=== PATIENT | female | born 1990 | race Caucasian/White ===

== ENCOUNTER 2020-09-17 10:08 | Outpatient (RCR) | payer OTHER, SELFPAY ==
--- NOTE | ~2020-09-17 | US_ITS ---
EXAMINATION: US OB follow up w [facility] DATE: 09/17/2020 11:44 INDICATION: Third trimester, post dates, estimated weight, biophysical profile, and amniotic fl uid index assessment. TECHNIQUE: Real-time pelvic ultrasound was performed. The interpreting radiologist was not present fo r the study. COMPARISON: None. FINDINGS: There is a single living fetus in vertex presentation. The placenta is located to the left. hea rt rate is 157 beats per minute (bpm). The amniotic fluid index is 12.3 cm which is normal. Biophysical profile performed by the technologist: breathing (30 sec sustained breathing in 30 minutes): 2 out of 2 movement (3 gross body movements in 30 minutes): 2 out of 2 tone (one episode of cwphblh-uudqwnlbo-msjqgdx limb movement): 2 out of 2 Amniotic fluid pocket (2 cm): 2 out of 2 Total score: 8 out of 8 The following biometric data were obtained: Biparietal diameter (BPD): 10.1 cm; head circumference (HC): 35.6 cm; abdominal circumference (AC): 3 8.0 cm; femur length (FL): 7.0 cm. Estimated weight is 4245 g +/- 636 g, which correlates with the 89th percentile when 09/15/2020 is used as estimated date of delivery. As single measurements, these parameters are each equal to the following estimated gestational ages w ith ranges of +/- 2 standard deviations: BPD: Out of range. HC: 41 weeks 5 days +/- out of range. AC: Out of range. FL: 36 weeks 1 days +/- out of range. estimated gestational age based solely on measurements from this exam is 39 weeks 0 days +/- 2 weeks 5 days. IMPRESSION: 1. Single living fetus in vertex presentation. 2. Biophysical profile 8 out of 8. 3. Estimated weight is 4245 g +/- 636 g, which correlates with the 89th percentile when 09/16/19 21 is used as estimated date of delivery. 4. Normal amniotic fluid index. Reviewed, dictated and finalized at location A. IMPRESSION: 1. Single living fetus in vertex presentation. 2. Biophysical profile 8 out of 8. 3. Estimated weight is 4245 g +/- 636 g, which correlates with the 89th p ercentile when 09/15/2020 is used as estimated date of delivery. 4. Normal amniotic fluid index.
--- NOTE | 2020-09-17 12:15 | PC.NURSE ---
Reported results of ultrasound and tracing to Dr. Brown, Pt may be discharged home. Keep appt for monday.
[2020-09-17 12:57] VITALS: BP 142/82; PULSE 92
== END 2020-09-21 09:33 | disposition home or self-care (01) ==
LOC: ANHOBOP 10:08
PROVIDERS: Visit Provider Obstetrics & Gynecology
DX: O48.0 Post-term pregnancy (principal); Z3A.40 40 weeks gestation of pregnancy
CPT/HCPCS: 59025; 76816; 76819

== ENCOUNTER 2020-09-17 22:02 | Inpatient (IN) | payer OTHER, SELFPAY ==
[2020-09-17 22:30] VITALS: BP 135/86; PULSE 92
[2020-09-17 22:45] VITALS: BP 143/78; PULSE 91
[2020-09-17 22:51] VITALS: BMI 38.5
--- NOTE | 2020-09-17 22:54 | LDADM ---
This patient, Deborah Maurice, was admitted to Labor/Delivery/Recovery 105 on 09/17/20 at 22:02. Plans for labor, pain management and were discussed with patient. Patient/family oriented to hospital policies and general routines including ID bracelet, bed and alarms, visiting hours, pain management, procedures, bathroom and other care routines, personal items, smoking policy, room service/diet and guest tray routines, infant security routines, and visiting hours. Patient/Family are encouraged to report perceived risks to care and to ask questions if they do not understand what they are told or what they should do. See OBIX for further documentation.
[2020-09-17 23:01] VITALS: BP 140/78; PULSE 91
[2020-09-17 23:08] LABS: Basophils Percent Auto 0.2 % (0.2-1.2); Eosinophils Absolute Auto 0.2 K/mm3 (0-0.3); Eosinophils Percent Auto 2.1 % (0-4.4); Hematocrit 39.3 % (37.0-47.0); Hemoglobin 13.4 g/dL (12.0-15.0); Immature Granulocyte Absolute 0.09 K/mm3 (0.00-0.031); Immature Granulocyte Percent A 0.9 % (0-0.5); Lymphocytes Absolute Auto 2.66 K/mm3 (0.9-3.2); Lymphocytes Percent Auto 25.3 % (18.3-44.2); Mean Corpuscular HGB Conc 34.1 g/dl (32-36); Mean Corpuscular Hemoglobin 30.1 pg (26-34); Mean Corpuscular Volume 88.3 fl (80-100); Mean Platelet Volume 10.8 fl (7.4-10.4); Monocytes Absolute Auto 0.6 K/mm3 (0.1-0.6); Monocytes Percent Auto 5.5 % (2.6-8.5); Platelet Count Result 213 k/mm3 (150-375); Red Blood Count 4.45 M/mm3 (4.2-5.4); Red Cell Distribution Width 14.6 % (11.5-14.5); White Blood Count 10.5 K/mm3 (4.5-10.0)
[2020-09-17 23:12] VITALS: RESP 18; TEMP 36.9
[2020-09-17 23:16] VITALS: BP 143/69; PULSE 94
[2020-09-17 23:43] VITALS: RESP 18; TEMP 36.6
[2020-09-18] VITALS (164 sets, daily range): BP systolic 106–166; BP diastolic 45–100; PULSE 77–126; RESP 16–20; TEMP 36.1–36.9; O2SAT 94–100
--- NOTE | 2020-09-18 08:50 | PM.IMHP ---
H&P: HPI History of Present Illness Date/Time: 09/18/20 0850 30 y/o G1 at 40 3/7 weeks here with a gush of clear fluid at 2044 last night. Has had minimal contractions overnight. Has declined oxytocin, preferring instead to wait for natural contractions. GBS neg. EFW 4200 g yesterday on ultrasound, vertex. Chief Complaint: Water broke Review of Systems Review of Systems: All systems reviewed & are unremarkable except as noted in HPI and below PMFSH Family History Family History Grandparent Family history of malignant neoplasm of breast Cerebrovascular accident Parkinson disease Father Hypertension Mother Liver failure Social History Social History Smoking status: Never smoker Second hand tobacco smoke exposure: No Alcohol intake: never Substance use: never Spiritual care concerns: No Meds Home Medications and Allergies Home Medications Medication Instructions Recorded Confirmed Type prenat.vits,heladio,ovh-dlvc-nrhyt 1 tablet PO HS 08/15/20 09/17/20 History [ #2] Allergies Allergy/AdvReac Type Severity Reaction Status Date / Time No Known Allergies Allergy Verified 08/15/20 13:37 Vital Signs Vital Signs - 24 hr 09/17/20 22:30 09/17/20 22:45 09/17/20 23:01 Temperature Pulse Rate 92 91 91 Respiratory Rate Blood Pressure 135/86 143/78 H 140/78 Pulse Oximetry 09/17/20 23:12 09/17/20 23:16 09/17/20 23:43 Temperature 36.9 C 36.6 C Pulse Rate 94 Respiratory Rate 18 18 Blood Pressure 143/69 H Pulse Oximetry 09/18/20 01:19 09/18/20 02:37 09/18/20 02:39 Temperature 36.1 C L 36.5 C Pulse Rate 84 Respiratory Rate 16 18 Blood Pressure 124/62 Pulse Oximetry 09/18/20 04:16 09/18/20 05:13 09/18/20 09:30 Temperature 36.4 C L 36.3 C L 36.7 C Pulse Rate 90 Respiratory Rate 20 18 Blood Pressure 135/76 Pulse Oximetry 09/18/20 11:01 09/18/20 11:30 06/25/21 12:00 Temperature 36.6 C Pulse Rate 90 93 Respiratory Rate Blood Pressure 133/76 137/77 Pulse Oximetry 09/18/20 12:30 09/18/20 13:00 09/18/20 13:07 Temperature Pulse Rate 90 88 Respiratory Rate Blood Pressure 138/81 145/77 H Pulse Oximetry 100 Exam Const: Orientation/consciousness: patient oriented x3 Other: Well-developed, well-nourished female in no acute distress. Neck: Thyroid: thyroid normal Lymphatic: no lymphadenopathy noted (in neck, axilla or inguinal nodes) Resp: Effort & Inspection: normal respiratory effort Auscultation: clear to auscultation bilaterally Cardio: Rate: regular rate Rhythm: regular rhythm Heart sounds: S1 normal heart sound present and S2 normal heart sound present GI: Other: ABD: Soft, nontender, nondistended, gravid, vertex. No guarding or rebound tenderness. No hepatosplenomegaly. NST reactive TOCO: rare contractions : General: Yes no CVA tenderness Other: Gross ROM. Cervix 1/80/-2 Back/Spine/Pelvis: Back: no CVA tenderness Skin: General skin exam: normal color and no rashes or lesions noted Neuro: General: patient oriented x3 Extrem: Other: Extremities: nontender with no edema Psych: Mental Status: mental status grossly normal Affect: normal affect H&P: Results Labs Labs: Short CBC 09/17/20 Range/Units 22:40 WBC 10.5 H (4.5-10.0) K/mm3 Hgb 13.4 (12.0-15.0) g/dL Hct 39.3 (37.0-47.0) % Plt Count 213 (150-375) k/mm3 Assessment and Plan Assessment and plan (1) SROM (spontaneous rupture of membranes): Status: Acute Assessment and Plan: A: IUP at 40 3/7 weeks with SROM. Now with SROM for approximately 12 hours. P: Offered augmentation of labor with oxytocin. We reviewed risks, benefits and alternatives in detail. She agrees to labor augmentation. Also will plan antibiotics if ROM > 18 hours. Finally, we reviewed the ultrasound
[2020-09-18 09:27] LABS: Rapid Plasma Reagin Non-Reactive (NonReactive)
[2020-09-18] MEDS: LACTATED RINGERS 1,000 ML 125 ML IV CONT ×2 (09:27→20:21)
[2020-09-18] MEDS: OXYTOCIN 30 UNITS/NS 500 ML 30 UNITS/500 ML BAG 6 UNITS IV CONT (09:28)
--- NOTE | 2020-09-18 13:20 | PM.OBPNLAB ---
Pain Control Date/time seen: 09/18/20 13:20 Comments: Feeling more contractions. Pelvic Exam Dilation (cm): 1 Effacement (%): 90 station: -2 Comments: AROM forebag with clear fluid. IUPC placed. Status status: Category l Assessment and Plan Comments: A: IUP at term with SROM. 4200 g efw. P: Augmenting labor with oxytocin. IUPC placed. Plan antibiotics at 18 h after SROM.
[2020-09-18] MEDS: AMPICILLIN 2 GM/NS 100 ML 2 GM/100 ML BAG IVPB (14:34)
--- NOTE | 2020-09-18 18:22 | PM.OBPNVD ---
OB - PN: Subj Subjective Date/time seen: 09/18/20 18:22 cx 3 by rn exam fhts ok/mec present abx going explained need to expedite delivery OB - PN: Obj Data Labs CBC & Chem 7: 09/17/20 22:40 Labs: Laboratory Results - last 24 hr 09/17/20 09/17/20 09/17/20 22:40 22:40 22:40 WBC 10.5 H RBC 4.45 Hgb 13.4 Hct 39.3 MCV 88.3 MCH 30.1 MCHC 34.1 RDW 14.6 H Plt Count 213 MPV 10.8 H Immature Gran % (Auto) 0.9 H Neut % (Auto) 66.0 Lymph % (Auto) 25.3 [place] % (Auto) 5.5 Eos % (Auto) 2.1 Baso % (Auto) 0.2 Lymph # (Auto) 2.66 [place] # (Auto) 0.6 Eos # (Auto) 0.2 Baso # (Auto) 0.0 Abs Immat Gran (auto) 0.09 H Absolute Neuts (auto) 7.0 H Absolute Nucleated RBC 0.0 Nucleated RBC % 0.0 RPR Non-reactive Blood Type A Positive Antibody Screen Negative OB - PN A/P Time Spent With Patient Time: Total time spent is greater than 50% in coordination of care (as documented) at patient's floor/unit and/or counseling patient:
[2020-09-18] MEDS: AMPICILLIN 1 GM/NS 50 ML 1 GM/50 ML BAG IVPB (20:19)
--- NOTE | 2020-09-18 20:41 | WPDANESEPPF ---
Anes - Initial Pre Proc Eval Procedure: labor epidural Date/Time: 09/18/20 20:41 Surgeon: Mio Brown MD Pre Op Diagnosis: labor pain Pre Op Diagnosis: leaking Patient Data Age: 30 Gender: F Height: 1.7 m Weight: 111.4 kg Last Vital Signs Temp 36.7 C 09/18/20 20:00 Pulse 92 09/18/20 20:40 Resp 18 09/18/20 05:13 BP 130/65 09/18/20 20:40 Pulse Ox 100 09/18/20 20:37 Allergies Allergy/AdvReac Type Severity Reaction Status Date / Time No Known Allergies Allergy Verified 08/15/20 13:37 Home Medications Medication Instructions Recorded Confirmed Type prenat.vits,heladio,fii-gvoj-dezeo 1 tablet PO HS 08/15/20 09/17/20 History [ #2] Laboratory Tests 09/17/20 09/17/20 09/17/20 22:40 22:40 22:40 WBC 10.5 K/mm3 H K/mm3 (4.5-10.0) RBC 4.45 M/mm3 M/mm3 (4.2-5.4) Hgb 13.4 g/dL g/dL (12.0-15.0) Hct 39.3 % % (37.0-47.0) MCV 88.3 fl fl (80-100) MCH 30.1 pg pg (26-34) MCHC 34.1 g/dl g/dl (32-36) RDW 14.6 % H % (11.5-14.5) Plt Count 213 k/mm3 k/mm3 (150-375) MPV 10.8 fl H fl (7.4-10.4) Immature Gran % (Auto) 0.9 % H % (0-0.5) Neut % (Auto) 66.0 % % (45.5-73.1) Lymph % (Auto) 25.3 % % (18.3-44.2) [place] % (Auto) 5.5 % % (2.6-8.5) Eos % (Auto) 2.1 % % (0-4.4) Baso % (Auto) 0.2 % % (0.2-1.2) Lymph # (Auto) 2.66 K/mm3 K/mm3 (0.9-3.2) [place] # (Auto) 0.6 K/mm3 K/mm3 (0.1-0.6) Eos # (Auto) 0.2 K/mm3 K/mm3 (0-0.3) Baso # (Auto) 0.0 K/mm3 K/mm3 (0.0-0.1) Abs Immat Gran (auto) 0.09 K/mm3 H K/mm3 (0.00-0.031) Absolute Neuts (auto) 7.0 K/mm3 H K/mm3 (1.3-6.7) Absolute Nucleated RBC 0.0 K/mm3 K/mm3 (0.0-0.012) Nucleated RBC % 0.0 % % (0.0-0.2) RPR Non-reactive (NonReactive) Blood Type A Positive Antibody Screen Negative Patient hx anesthesia problems: none Family hx anesthesia problems: none [facility] Family History Family History Grandparent Family history of malignant neoplasm of breast Cerebrovascular accident Parkinson disease Father Hypertension Mother Liver failure Social History Social History Smoking status: Never smoker Second hand tobacco smoke exposure: No Alcohol intake: never Substance use: never Spiritual care concerns: No Anes - Eval Final PreProcedure Day of Procedure 09/18/20 20:41 Patient weight: obese ASA classification: II Anesthesia type and monitoring: regional epidural Informed Consent: The patient's anesthetic plan and its attendant risks and benefits were discussed with the patient/family/POA. Questions were solicited and answers provided to the satisfaction of the patient/family/POA.
[2020-09-19] VITALS (41 sets, daily range): BP systolic 115–159; BP diastolic 64–113; PULSE 87–146; RESP 16–20; TEMP 36.1–37.3; O2SAT 90–100
[2020-09-19] MEDS: AMPICILLIN 1 GM/NS 50 ML 1 GM/50 ML BAG IVPB (00:32)
[2020-09-19] MEDS: ONDANSETRON INJ 4 MG/2 ML VIAL IV PUSH (00:34)
--- NOTE | 2020-09-19 03:47 | PM.OBPRVD ---
OB - Delivery Note Procedure Delivery date: 09/19/20 events: Meconium Stained Fluid Intrapartal events: None Induction method: none Delivery augmentation: pitocin Delivery monitor: external FHT Route of delivery: Episiotomy description: None Laceration Description: Vaginal - 1st Degree Delivery repair: vicryl Specimen: No Quantitative Blood Loss (ml): 58 Anesthesia type: Epidural Disposition: floor [place] Baby Date of : 09/19/20 Time of : 03:30 Weeks of gestation at delivery: 40 Infant gender: Male presentation: vertex position: Right Occiput Anterior Placenta delivery description: Spontaneous cord vessel description: 3 Vessels score one minute: 9 score five minutes: 9
[2020-09-19] MEDS: OXYTOCIN 30 UNITS/NS 500 ML 30 UNITS/500 ML BAG 125 UNITS IV CONT (04:13)
[2020-09-19] MEDS: BENZOCAINE 20% AER SPR (*SP) 56 GM CAN 1 SPRAY TOPICAL (05:32)
[2020-09-19] MEDS: WITCH HAZEL 40 PADS 1 PAD TOPICAL (05:32)
[2020-09-19] MEDS: IBUPROFEN 600 MG TABLET PO ×2 (05:32→18:45)
--- NOTE | 2020-09-19 06:09 | OBPPTRN ---
Patient transferred to post room #288 via wheelchair. Support person present. Oriented to unit, room, information board, rooming in, admission packet and security measures. Patient verbalizes understanding.
[2020-09-20 05:52] LABS: Hematocrit 32.7 % (37.0-47.0); Hemoglobin 10.7 g/dL (12.0-15.0)
--- NOTE | 2020-09-20 06:39 | PM.OBPNVD ---
OB - PN: Subj Subjective Date/time seen: 09/20/20 06:39 Patient comments: no complaints and pain well controlled baby status: doing well and nursing well OB - PN: Obj Data Labs CBC & Chem 7: 09/20/20 04:30 Labs: Laboratory Results - last 24 hr 09/20/20 04:30 Hgb 10.7 L Hct 32.7 L OB - PN A/P Plan day: 1 Plan: routine care, discharge home and follow up 6 weeks Time Spent With Patient Time: Total time spent is greater than 50% in coordination of care (as documented) at patient's floor/unit and/or counseling patient: Time with patient: less than 15 minutes Review of Systems Review of Systems: All systems reviewed & are unremarkable except as noted in HPI and below Exam Const: General: no acute distress Eyes: General: appearance normal, both eyes and all related structures Neck: Neck: supple and no JVD Thyroid: thyroid normal Resp: Effort & Inspection: normal respiratory effort Auscultation: clear to auscultation bilaterally Cardio: Rate: regular rate Rhythm: regular rhythm GI: Inspection: non-distended GI Palp: Yes Soft to palpation, No Tenderness to palpation present (GI) and No Guarding due to palpation present (GI) Auscultation: normal bowel sounds : General: Yes bladder normal to palpation External Female Exam: normal external appearance Speculum Exam - Vagina: normal vaginal discharge and No vaginal bleeding Speculum Exam - Cervix: nontender Bimanual exam- vagina & uterus: bladder normal to palpation and No Cervical tenderness present OB/external & speculum: No vaginal bleeding Skin: General skin exam: no rashes or lesions noted Extrem: General: normal to inspection and no edema Psych: Mental Status: mental status grossly normal Affect: normal affect
--- NOTE | 2020-09-20 06:41 | PM.DS ---
DS: Admitting Diagnosis Admitting Diagnosis Admitting Diagnosis: term iup in labor DS: Summary Hospital Course Hospital Course: The patient was admitted in active labor and underwent spontaneous vaginal delivery with an epidural. Her hospital course was unremarkable. She remained afebrile. She was the, breast feeding, voiding without difficulty, eating regular diet, and generally without complaints Time Spent with Patient Time attestation: Total time spent providing and/or coordinating discharge services: Exam Const: General: no acute distress Eyes: General: appearance normal, both eyes and all related structures Neck: Neck: supple and no JVD Thyroid: thyroid normal Resp: Effort & Inspection: normal respiratory effort Auscultation: clear to auscultation bilaterally Cardio: Rate: regular rate Rhythm: regular rhythm GI: Inspection: non-distended GI Palp: Yes Soft to palpation, No Tenderness to palpation present (GI) and No Guarding due to palpation present (GI) Auscultation: normal bowel sounds : General: Yes bladder normal to palpation External Female Exam: normal external appearance Speculum Exam - Vagina: normal vaginal discharge and No vaginal bleeding Speculum Exam - Cervix: nontender Bimanual exam- vagina & uterus: bladder normal to palpation and No Cervical tenderness present OB/external & speculum: No vaginal bleeding Skin: General skin exam: no rashes or lesions noted Extrem: General: normal to inspection and no edema Psych: Mental Status: mental status grossly normal Affect: normal affect DS: Data Data Completed and Pending Labs on day of discharge: Labs from last 24 hours 09/20/20 04:30 Hgb 10.7 L Hct 32.7 L Discharge Plan Discharge Attending physician on discharge: Arik Rodriguez Discharging Clinician: Arik Rodriguez Patient Disposition: Home, Self-Care Activity: may shower, no straining and pelvic rest Diet: heart healthy Wound Care Instructions: follow printed instructions Patient Instructions: Antibiotic Form Stand Alone Forms: General Discharge Information Follow-up/Referrals: Arik Rodriguez MD [Physician] - Mio Brown MD [Physician] - Discharge Medications: Continued #2 Tablet 1 tablet PO HS RF: 0 Date of admission: 09/17/20 22:02 Primary Care Provider: PHYSICIAN,FIELD PROJECT MANAGER Admitting Provider: Mio Brown Attending physician on admission: Mio Brown Condition: Stable
[2020-09-20] MEDS: MULTIVIT/MIN/PREN/FOL AC/IRON TABLET 1 TAB PO (07:49)
[2020-09-20] MEDS: IBUPROFEN 600 MG TABLET PO ×2 (07:49→17:31)
[2020-09-20 07:50] VITALS: BP 120/76; PULSE 86; RESP 18; TEMP 36.3
--- NOTE | 2020-09-20 09:16 | WPDANLDPN2 ---
Anes-Prog Note L&D Date/Time: 09/20/20 09:16 Comfortable throughout: labor Neuraxial method: epidural Epidural/Spinal procedure site: clean & non-tender Neuro status: Neuro function grossly intact. Cardiovascular status: normal Respiratory status: normal Airway patency: baseline Mental status: baseline Post-Op hydration status: normal Vital Signs: Last Vital Signs Temp 36.3 C L 09/20/20 07:50 Pulse 86 09/20/20 07:50 Resp 18 09/20/20 07:50 BP 120/76 09/20/20 07:50 Pulse Ox 100 09/19/20 03:29 Pain score (VAS): 0/10 Post-procedural complaints: none Patient feedback: Patient satisfied with anesthetic care.
[2020-09-20] MEDS: HYDROCORTISONE 1% 30 GM CREAM 1 APPLIC TOPICAL (10:00)
--- NOTE | 2020-09-20 10:00 | PC.NURSE ---
Breast pump provided due to mother concerns about not getting enough at breast. Encouraged mother to pump if infant has a short or sleepy feeding. Instructions given on breast pump care and usage, pumping schedule, nipple care, and collection and storage of breast milk. Assessed patient for correct flange size, placement and draw. Patient verbalizes and demonstrates understanding of instructions.
[2020-09-20 18:30] VITALS: BP 125/76; PULSE 83; RESP 18; TEMP 37.4; O2SAT 98
[2020-09-21 07:50] VITALS: BP 141/80; PULSE 89; RESP 16; TEMP 36.7; O2SAT 100
[2020-09-21 08:00] VITALS: PULSE 89; RESP 16; O2SAT 100
--- NOTE | 2020-09-21 09:03 | PM.OBPNVD ---
OB - PN: Subj Subjective Date/time seen: 09/21/20 09:03 Narrative: Pain OK. Would like to go home. OB - PN: Obj Data Labs CBC & Chem 7: 09/20/20 04:30 OB - PN A/P Plan Comments: A: PPD#2, doing well. P: Home to f/u 6 weeks. Exam Psych: Other: AVSS ABD soft, nontender, fundus firm EXT nontender
--- NOTE | 2020-09-21 09:04 | PM.OBDSVD ---
DS: Admitting Diagnosis Admitting Diagnosis Admitting Diagnosis: SROM at term DS: Discharge Diagnosis Discharge Diagnosis (1) SROM (spontaneous rupture of membranes): Status: Acute (2) (normal spontaneous vaginal delivery): Code(s): O80 - Encounter for full-term uncomplicated delivery Status: Acute OB - DS: Summary OB Procedures : None OB Procedures Intrapartum: Spontaneous Vag Delivery OB Procedures: : None Discharge Plan Discharge Attending physician on discharge: Mio Brown Discharging Clinician: Mio Brown Patient Disposition: Home, Self-Care Activity: pelvic rest Diet: regular Wound Care Instructions: follow printed instructions Discharge Instructions: Call or return if temperature above 100.4? F, increased abdominal pain, increased vaginal bleeding or any new problems. Stand Alone Forms: General Discharge Information Follow-up/Referrals: Arik Rodriguez MD [Physician] - Mio Brown MD [Physician] - 6 Weeks Discharge Medications: New ibuprofen 600 mg tablet 600 mg PO Q6H PRN (Reason: cramps) Qty: 30 RF: 0 triamcinolone acetonide 0.1 % ointment 1 applic topical BID PRN (Reason: rash) Qty: 30 RF: 0 Continued #2 Tablet 1 tablet PO HS RF: 0 Date of admission: 09/17/20 22:02 Primary Care Provider: PHYSICIAN,POWER SUPPLY ENGINEER Admitting Provider: Mio Brown Attending physician on admission: Moi Brown Condition: Stable
--- NOTE | 2020-09-21 09:40 | PC.NURSE ---
Mother called out for assist with feeding. Mother reports pain with latch and during the entire feeding. Reviewed feeding cues, frequencies, duration of feedings, feeding elimination flow sheet, and signs of adequate intake. Demonstrated stimulation techniques to wake for feeding. Mother allows infant to latch shallow with bottom lip rolled in, causing a lipstick appearance to nipple. Requested mother break latch. Assisted with to breast. Reviewed positioning/alignment in cross cradle, holding breast in ?U? hold and guided asymmetrical latch on. Infant able to latch correctly. nursed eagerly, with steady draws and frequent swallowing noted. Reviewed signs of a correct latch, effective nursing and suck swallow ratio. would slip to shallow latch, mother reports tenderness. Demonstrated how to adjust latch more deeply while feeding. Mother reports she can feel change in latch and has no tenderness. Nipple care reviewed of lanolin after feedings, warm compresses and gel pads as needed. Suggested mother stimulate while feeding to increase stimulate, increase intake and to assist with maintaining deep latch. Mother is planning on discharge after this feeding. Mother is feeding as required and waking to feed if needed. Infant is waking to feed as required,l is currently meeting outcomes for weight, output, jaundice and feeding frequencies. Mother states she feels confident to continue effective at home. Reviewed transition to breast milk, signs of adequate intake, and engorgement/relief. Instructed to call ICP if intake/output less than required. Reviewed regular medications mother is taking. Information provided per [place]. Reviewed community resources on the [facility] website and in the Mom/Baby guide. Information on outpatient services provided. Mother has no further questions at this time.
[2020-09-21] MEDS: MULTIVIT/MIN/PREN/FOL AC/IRON TABLET 1 TAB PO (09:50)
[2020-09-21] MEDS: IBUPROFEN 600 MG TABLET PO (09:50)
--- NOTE | 2020-09-21 10:56 | PC.NURSE ---
Patient viewed the discharge video Mother & Baby Care, The First Two Weeks . Patient was given the opportunity and encouraged to ask questions. Patient verbalized understanding of information shared and has been given the mother/baby guide for home reference.
[2020-09-22 10:02] VITALS: BP 124/65; PULSE 82; RESP 20; TEMP 36.8; O2SAT 100
== END 2020-09-21 13:10 | disposition home or self-care (01) | DRG 807 ==
LOC: ANHLDR 09-18 09:23 → ANHOB2 09-19 06:12
PROVIDERS: Admitting Provider Obstetrics & Gynecology; Visit Provider Obstetrics & Gynecology
DX: O42.92 Full-term premature rupture of membranes, unspecified as to length of time between rupture and onset of labor (principal); Z37.0 Single live birth; O77.0 Labor and delivery complicated by meconium in amniotic fluid; O76 Abnormality in fetal heart rate and rhythm complicating labor and delivery; O70.0 First degree perineal laceration during delivery; Z3A.40 40 weeks gestation of pregnancy
CPT/HCPCS: 36415; 59025; 76816; 76819; 85014; 85018; 85025; 86592; 86850; 86900; 86901; A9270; J0290; J2405; J2590; J2795; J7120

== ENCOUNTER 2020-10-02 10:47 | Outpatient (RCR) | payer OTHER, SELFPAY ==
--- NOTE | 2020-10-02 12:00 | PC.NURSE ---
IN 1000 OUT 1055 HISTORY: Pt. delivered at [facility] at 39 weeks. had no complications after delivery. Mother had no complications after delivery. Infant is now 12 days old. Infant appears to be well cared for. Infant has been seen by ICP as scheduled. Infant last seen by ICP on at 1 week. Mother reports: Difficulties with latching, infant make take a few attempts before eagerly latch without discomfort. Infant has a clicking sound while nursing at times, mother denies discomfort when clicking. Infant will have heavy clicking if bottle fed. Mother is putting infant to breast every three hours for 15-25 minutes. will release when feeding is complete, mother will give a supplement of 1 oz EBM if appears to act fussy or hungry, approximately 2-3 times per day. Mother randomly pumps 80-100mls during the day. Mother wishes: To correct infant clicking while and bottle feeding, obtain a quick latch. OBSERVATION: Currently at 9 wets per day and 6 yellow seedy stools per day. weight: 8#10 Discharge weight: 7#2 Last Weight:9#1 Pre feeding weight: 4172 Post feeding weight: 4259 Infant appears to move tongue freely past gum ridge, no sign of tight frenulum noted. Upper lip does not flange out. Mother has no redness or flores to nipples from incorrect latch. Mother puts to breast using cross cradle positioning/alignment, holding breast and asymmetrical latch on. was able to latch correctly within two attempts. Infant nursed eagerly, with steady draws and frequent swallowing noted. Top lip remains flat and not flanged, bottom lip is rolled in. Reviewed signs of a correct latch, effective nursing and suck swallow ratio. Infant was able to maintain latch without discomfort to mother. With in a few minutes,once mother's milk let down,clicking was noted. pulled back to shallow latch. Demonstrated how to roll out bottom lip, once lip was out and good seal obtained, clicking stopped. Infant completed feeding without clicking noted, mother denies nipple discomfort with latch or feeding. Mother wished for infant to be bottle fed for same clicking with suckling. Mother uses a nipple with a large bulb to end. latches to nipple as with breast, bottom lip rolled in and top lip flat. Once bottom lip was rolled out and top lip slightly flanged suckled without clicking noted. Mother reports infant this was a good feeding for he finished quickly without on and off during feeding. PLAN: Mother will follow above feeding plan rolling bottom lip out and slightly flanging top. Suggested mother use a nipple with a small bulb to end to assist with deep latch to bottle nipple. Mother will call with further questions or concerns. . I
== END 2020-11-03 09:57 | disposition home or self-care (01) ==
LOC: ANHOBOP 10:47
PROVIDERS: Visit Provider Pediatrics
DX: Z39.1 Encounter for care and examination of lactating mother (principal)
CPT/HCPCS: 99212; G0463

== ENCOUNTER 2022-03-20 14:13 | Emergency (ER) | payer OTHER, SELFPAY ==
--- NOTE | ~2022-03-20 | US_ITS ---
EXAMINATION: US OB <=14 wk fetus w TV INDICATION: 9 weeks, no IUP confirmed, bleeding, crmaping TECHNIQUE: Sonography of the pelvis was performed by transabdominal and transvaginal techniques. COMPARISON: None. RESULT: Uterus: Orientation: Anteverted. 8.2 x 4.8 x 5.2 cm. Myometrium: homogeneous echogenicity. Heterogen eous material in the endometrial cavity and cervical canal. Gestation: - Intrauterine gestational sac: Not seen. Right ovary: 3.3 x 2.6 x 2.4 cm. Normal sonographic appearance with physiologic follicles. . Corpu s luteal cyst. Left ovary: 2.7 x 1.5 x 1.7 cm. Normal sonographic appearance with physiologic follicles. . . Pelvis free fluid: None. IMPRESSION: Positive test with no intrauterine gestational sac visualized. Findings represent pregnanc y of unknown location. Differential diagnosis includes early normal, failed early, or ectopic pregna ncy. Heterogeneous interstitial and cervical canal material suggests spontaneous in progress . Recommend follow-up serial beta-hCG values. Ultrasound follow-up should be considered as clinicall y warranted. Reviewed, dictated and finalized at location K. CLE MECHANIC IMPRESSION: Positive test with no intrauterine gestational sac visualized. Findi ngs represent of unknown location. Differential diagnosis includes e ricardo normal, failed early, or ectopic . Heterogeneous interstitial and cervical canal material suggests spontaneous in progress. Recommend f ollow-up serial beta-hCG values. Ultrasound follow-up should be considered as clinically warranted.
[2022-03-20 14:24] VITALS: BP 126/78; PULSE 82; RESP 18; TEMP 36.7; O2SAT 99
[2022-03-20 14:35] LABS: Basophils Percent Auto 0.4 % (0.2-1.2); Eosinophils Absolute Auto 0.2 K/mm3 (0-0.3); Hematocrit 44.9 % (37.0-47.0); Hemoglobin 14.8 g/dL (12.0-15.0); Immature Granulocyte Absolute 0.02 K/mm3 (0.00-0.031); Immature Granulocyte Percent A 0.2 % (0-0.5); Lymphocytes Absolute Auto 3.29 K/mm3 (0.9-3.2); Lymphocytes Percent Auto 36.1 % (18.3-44.2); Mean Corpuscular Hemoglobin 29.8 pg (26-34); Mean Corpuscular Volume 90.3 fl (80-100); Mean Platelet Volume 9.9 fl (7.4-10.4); Monocytes Absolute Auto 0.3 K/mm3 (0.1-0.6); Monocytes Percent Auto 3.6 % (2.6-8.5); Neutrophils Absolute Auto 5.3 K/mm3 (1.3-6.7); Neutrophils Percent Auto 57.7 % (45.5-73.1); Platelet Count Result 275 k/mm3 (150-375); Red Blood Count 4.97 M/mm3 (4.2-5.4); White Blood Count 9.1 K/mm3 (4.5-10.0)
[2022-03-20 15:47] VITALS: BP 124/72; PULSE 82; RESP 20; O2SAT 100
--- NOTE | 2022-03-20 16:48 | ED.PREGNANCY ---
HPI - General Chief complaint: Vaginal Bleeding Stated complaint: preg vag bleed Time Seen by Provider: 03/20/22 15:55 Source: patient Mode of arrival: ambulatory Limitations: no limitations History of Present Illness HPI Narrative: Patient is a 31-year-old female who presents to the ED with report of vaginal bleeding. Patient is and currently approximately 9 weeks gestation, sees Dr. Brown. She has not been seen for this current thus far and has not had an ultrasound. She had 1 episode of vaginal spotting last week. Today, she developed vaginal bleeding again. Bleeding became heavy with clots around noon today, which prompted her presentation. She also reports having lower abdominal cramping. Denies nausea, vomiting, fevers. Related Data Home Medications Medication Instructions Recorded Confirmed prenat.vits,heladio,okz-zfcj-voizl 1 tablet PO HS 08/15/20 09/17/20 Allergies Allergy/AdvReac Type Severity Reaction Status Date / Time No Known Allergies Allergy Verified 03/20/22 15:54 Review of Systems Review of Systems: CONSTITUTIONAL: Denies fever, chills, or sweats. CARDIOVASCULAR: Denies chest pain. RESPIRATORY: Denies dyspnea. GASTROINTESTINAL: Reports lower abdominal cramping. Denies nausea, vomiting, or diarrhea. GENITOURINARY: Reports vaginal bleeding. Denies dysuria or hematuria. All systems reviewed & are unremarkable except as noted in HPI and below PMFSH Past Medical History Medical History No pertinent past medical history Surgical History Surgical History (Updated 03/20/22 @ 16:50 by Martha Cook PA-C) No pertinent past surgical history Family History Family History Grandparent Family history of malignant neoplasm of breast Cerebrovascular accident Parkinson disease Father Hypertension Mother Liver failure Social History Social History Smoking status: Never smoker Second hand tobacco smoke exposure: No Alcohol intake: never Substance use: never Spiritual care concerns: No Exam Narrative: GENERAL: Well appearing, obese, non-toxic, in no acute distress. HEAD: Normocephalic, atraumatic. NECK: Supple. No adenopathy, no masses. RESPIRATORY: Airway patent, respirations nonlabored. Clear to auscultation bilaterally, no rales, rhonchi, wheezing. CARDIOVASCULAR: Regular rate and rhythm without murmurs, rubs, or gallops. Radial pulses 2+ and equal bilaterally. ABDOMINAL: Soft, mild tenderness throughout lower abdomen, nondistended, no hepatosplenomegaly. Normoactive BS. PELVIS: Normal external genitalia. Moderate amount of dark red vaginal bleeding present in vaginal vault. No pooling of fluid or signs of hemorrhage. Easily clearable with long Q-tips. Cervix appears open with large clot coming from cervical os, which was removed with ring forceps. MUSCULOSKELETAL: Moves all extremities. Strength/ROM intact without gross deformities. SKIN: Warm, dry, normal color. No rashes. NEURO: A&O X3. Speech clear. Cranial nerves II-XII grossly intact. Steady gait. No ataxic movements. PSYCHIATRIC: Appropriate mood and affect. Normal interaction. Course Consultations Consultation #1: Discussed case with Dr. Brown OBGYN, recommended repeat beta-hCG Monday and follow-up in office on Monday. Date: 03/20/22 Vital Signs Vital signs: Vital Signs Temperature 98.1 F 03/20/22 14:24 Pulse Rate 82 03/20/22 14:24 Respiratory Rate 18 03/20/22 14:24 Blood Pressure 126/78 03/20/22 14:24 Pulse Oximetry 99 03/20/22 14:24 Oxygen Delivery Room Air 03/20/22 14:24 Temperature 98.1 F 03/20/22 14:24 Pulse Rate 82 03/20/22 15:47 Respiratory Rate 20 03/20/22 15:47 Blood Pressure 124/72 03/20/22 15:47 Pulse Oximetry 100 03/20/22 15:47 Oxygen Delivery R
[2022-03-20 17:10] LABS: Add Urine Microscopic? YES; Appearance Urine Clear (Clear); Bilirubin Urine Negative (Negative); Blood Urine 3+ (Negative); Color Urine Light Yellow (Yellow); Glucose Urine UA Negative (Negative); Ketones Urine Negative (Negative); Leukocyte Esterase Ur Negative LEU/UL (Negative); Nitrate Urine Negative (Negative); Protein Urine Negative (Negative); Specific Grav Ur <= 1.005 (1.001-1.035); Urobilinogen Urine 0.2 mg/dL (<2.0)
[2022-03-20 17:14] LABS: Bacteria Urine Trace /hpf; RBC Urine >75 /hpf (0-2)
== END 2022-03-20 18:27 | disposition home or self-care (01) ==
LOC: ANHED 17:46
PROVIDERS: Emergency Medicine; Emergency Provider Physician Assistant
DX: O03.9 Complete or unspecified spontaneous abortion without complication (principal)
CPT/HCPCS: 36415; 76801; 76817; 81001; 84702; 85025; 85461; 86850; 86900; 86901; 99284

== ENCOUNTER 2022-03-25 14:37 | Outpatient (CLI) | payer OTHER, SELFPAY ==
--- NOTE | ~2022-03-25 | US_ITS ---
EXAMINATION: US OB <=14 wk fetus w TV DATE: 03/25/2022 15:34 INDICATION: Incomplete spontaneous without complication TECHNIQUE: Real-time pelvic ultrasound utilizing both a transvaginal and transabdominal probe was pe rformed. The interpreting radiologist was not present for the study. COMPARISON: None. FINDINGS: The uterus measures 7.6 x 4.3 x 5.3 cm. The endometrial complex measures 1.3 cm thickness with heter ogeneous internal echogenicity. On cine images there are a few nonspecific small hypoechoic regions, the 2 largest measuring 3 mm. No definitive intrauterine gestational sac. Bladder and well-defined decidua sign or internal yolk sac or pole. The right ovary measures 2. 9 x 1.5 x 1.3 cm. The left ovary measures 2.6 x 1.6 x 1.4 cm. There are couple subcentimeter anechoic cysts/follicles at the right ovary. Vascular flow identified in both ovaries on color Doppler. There is no free fluid in the pelvis. IMPRESSION: 1. Heterogeneous endometrial complex measuring 13 mm in thickness with a few small hyperechoic region s measuring up to 3 mm, but no definitive intrauterine gestational sac. Differential would include ea rly, failed or ectopic . Recommend follow-up with serial beta-hCG levels. Reviewed, dictated and finalized at location A. ENT SUPPORT ASSISTANT IMPRESSION: 1. Heterogeneous endometrial complex measuring 13 mm in thickness with a few sm all hyperechoic regions measuring up to 3 mm, but no definitive intrauterine ge stational sac. Differential would include early, failed or ectopic . R ecommend follow-up with serial beta-hCG levels.
== END 2022-03-25 14:38 | disposition home or self-care (01) ==
LOC: ANHIMG 14:38
PROVIDERS: Visit Provider Obstetrics & Gynecology
DX: O03.4 Incomplete spontaneous abortion without complication (principal)
CPT/HCPCS: 76801; 76817